=== PATIENT | male | born 1955 | race Caucasian/White ===

== ENCOUNTER 2017-10-10 10:08 | Emergency (ER) | payer OTHER ==
[2017-10-10] MEDS ORDERED: TDAP ADULT 0.5 ML INJ (BOOSTRIX) IM ONE (10:24)
--- NOTE | 2017-10-10 10:24 | EDPHY ---
H & P Time Seen by Provider: 10/10/17 10:21 HPI/ROS: CHIEF COMPLAINT: Left ring finger laceration and ring caught HISTORY OF PRESENT ILLNESS: 62-year-old male arrives via private vehicle complaining of laceration to his left volar ring finger after his ring caught on a fence when he was running this morning. He opened the fence in his ring caught on an object any sustained partial degloving and laceration. He was unable to remove his ring.. Tetanus is out-of-date. No paresthesia distally. He has been unable to remove the ring PHYSICAL EXAM (Prior to examination, patient consented to physical exam, hands were washed and my usual and customary physical exam procedures followed) 1) GENERAL: Well-developed, well-nourished, alert and oriented. Appears to be in no acute distress. 2) HEAD: Normocephalic 3) HEENT: sclera anicteric 4) LUNGS: Breathing comfortably. 5) SKIN: Ring in place on the 4th digit. Once this is removed have examined the patient revealing a palmar laceration at the proximal 4th digit on the left hand in location where his ring was. This laceration measures 3 cm. FDP FDS function grossly intact. Tissue margins are regular. 6) MUSCULOSKELETAL: FDP FDS function grossly intact . No signs of infection. Negative kanavel. 7) NEUROLOGIC: Full sensation two-point discrimination intact distally Smoking Status: Never smoked Constitutional: Initial Vital Signs Temperature (C) 36.6 C 10/10/17 10:15 Heart Rate 56 L 10/10/17 10:15 Respiratory Rate 16 10/10/17 10:15 Blood Pressure 128/79 H 10/10/17 10:15 O2 Sat (%) 98 10/10/17 10:15 O2 Delivery Mode Room Air Allergies/Adverse Reactions: Penicillins Allergy (Intermediate, Verified 10/10/17 10:18) Hives Home Medications: Medication Instructions Recorded Cephalexin [Keflex] 500 mg PO TID 7 Days cap 10/10/17 MDM/Departure - MDM Imaging Results: Imaging Impressions Hand X-Ray 10/10/17 10:47 Impression: 1. Soft tissue laceration with radiopaque fragments in the adjacent soft tissues. 2. No acute fracture. 3. Degenerative joint disease as detailed above. Images reviewed myself Procedures: Procedure: Laceration repair. I explained the indications, risks and benefits for both laceration repair and anesthetic administration. Verbal consent was obtained from the patient. The laceration on the left ring finger was anesthetized using 0.5% bupivicaine without epinephrine digital nerve block. After anesthetic administered the patient was observed for a period of time and had no apparent adverse effects. The wound was cleaned, prepped, draped in normal sterile fashion and explored to its base. No foreign body seen, no foreign bodies palpated. There were no deep structures involved. No tendon injury was identified. The wound edges were reapproximated with 7 simple interrupted 5 O Prolene sutures. The wound repair was complex. The procedure was performed by myself. Patient has been informed that scarring will occur, although efforts have been made to minimize this. Procedure: Splint A carmen-tape and aluminum splint was applied by ER electrostatic powder coating technician. After application of the splint I returned and re-examined the patient. The splint was adequately immobilizing the joint and distal to the splint the patient's circulation and sensation were intact. Medications Given: Discontinued Medications Cephalexin HCl (Keflex) 500 mg PO EDNOW ONE PRN Reason: Protocol Stop: 10/10/17 12:21 Last Admin: 10/10/17 12:35 Dose: 500 mg Diphtheria/Tetanus/Acell Pertussis (Boostrix) 0.5 ml IM .ONCE ONE Stop: 10/10/17 10:25 Last Admin: 10/10/17 10:45 Dose: 0.5 ml ED Course/Re-evaluation: Patient was re-evaluated with serial examinations. His x-ray was performed prior to wound irrigation and did show radiopaque foreign body. Wound is copiously irrigated with pulsatile irrigation. This 3 cm laceration is a partial degloving component and has regular skin edges and was noted to have previously present foreign body. He has no gross FDP or FDS dysfunction on examination. He is at risk of infection. The wound edges have been generally reapproximated, this area has been splinted, is started on prophylactic antibiotics. Today is Thursday. I recommend follow up with Dr. Kishor Salinas on Thursday, Hand surgery. Because of the partial degloving component he has been informed that long-term viability of tissue is incompletely clear at this time and therefore the importance of follow-up has been stressed on numerous instances. He feels comfortable with this plan. All questions and concerns addressed by myself. Usual and customary wound precautions and instructions provided. I saw this patient independently based on established practice protocols. Care of patient under supervision of primary supervising physician Dr Coreas . - Depart Disposition: Home, Routine, Self-Care Clinical Impression: Partial degloving injury to finger Condition: Good Instructions: Care For Your Stitches (ED), Laceration (ED) Additional Instructions: Return to the ER if you develop redness, swelling, discharge, warmth to the wound, red streaks going up your arm, or any other symptoms that concern you. Prescriptions: Cephalexin [Keflex] 500 mg PO TID 7 Days cap Referrals: Kishor Salinas MD [Medical Doctor] - 10/12/17 (Dr. Salinas is a hand surgeon)
[2017-10-10] MEDS ORDERED: CEPHALEXIN 500 MG CAP PO ONE (12:20)
[2017-10-10 12:58] VITALS: BP 142/87
== END 2017-10-10 12:58 | disposition home or self-care (01) ==
PROC: 0HQGXZZ Repair Left Hand Skin, External Approach (ICD-10-PCS; principal; 2017-10-10)
DX: S61.215A Laceration without foreign body of left ring finger without damage to nail, initial encounter (principal); Z23 Encounter for immunization; W23.1XXA Caught, crushed, jammed, or pinched between stationary objects, initial encounter; Y99.8 Other external cause status; Y93.02 Activity, running